=== PATIENT | female | born 1955 | race Caucasian/White ===

== ENCOUNTER → 2018-03-21 17:28 | Outpatient (CLI) | payer OTHER ==
[2018-03-21 19:40] LABS: THYROID STIMULATING HORMONE 1.9 uIU/mL (0.36-3.74)
[2018-03-21 20:17] LABS: ERYTHROCYTE SEDIMENTATION RATE 10 mm/hr (0-30)
[2018-03-23 08:17] LABS: FOLATE (FOLIC ACID) - SERUM >20.0 ng/mL (>3.0)
[2018-03-25 13:17] LABS: ANA REFLEX - DIRECT Negative (Negative)
== END | disposition home or self-care (01) ==
LOC: D.LABREF 17:28
PROVIDERS: Neurological Surgery
DX: E06.3 Autoimmune thyroiditis (principal); M62.542 Muscle wasting and atrophy, not elsewhere classified, left hand